=== PATIENT | female | born 1990 | race African-American/Black ===

== ENCOUNTER 2016-09-28 10:51 | Emergency (ER) | payer MEDICAID ==
[~2016-09-28 10:51] MED LIST: BACT2OIN TOP; CLIN150 PO; PRENCAP6 PO
--- NOTE | 2016-09-28 11:25 | PD ---
HPI Chief Complaint Pelvic pain Date Seen: Sep 28, 2016 Time Seen: 11:20 (Yo Styles MD R2) Travel History International Travel<30 Days: No Contact w/Intl Traveler<30Days: No Known Affected Area: No (Yo Styles MD R2) History of Present Illness HPI 25 at 33.4 with due date 11/12. care with Mayelin Ross. Patient states she has had constant pelvic pain since last night. Last night, the pain started 8 out of 10. Worse with sitting, standing, coughing, laughing. Improved with lying flat. She woke up this morning and continues to have pain, though improved from last night. The pain does not come and go. No fever, chills. No loss of fluid, no vaginal bleeding. She feels the baby move normally. No dysuria. No hematuria. Para: 3 : 4 (Yo Styles MD R2) History Past Medical History Medical History: Denies Significant Hx (Yo Styles MD R2) Obstetric History Obstetric History All previous pregnancies were vaginal deliveries. Full-term. No complications. (Yo Styles MD R2) Past Surgical History Surgical History: No Previous Surgery (Yo Styles MD R2) Family History Family History: Negative (Yo Styles MD) Social History Alcohol Use: No Tobacco Use: No Substance Abuse: No (Yo Styles MD R2) Allergies-Medications (Allergen,Severity, Reaction): Coded Allergies: No Known Allergies (Verified , 09/28/16) Home Meds Active Scripts Mupirocin 2% Oint (22 gm) 2 % Oin1 Applic TOP BID 10 Days APPLY TO AFFECTED AREA(S) Prov:Janny Amaya 05/14/16 Reported Medications Mv & Min W/Fe Fumarat ( 1) Cap1 Cap PO DAILY 05/14/16 Discontinued Scripts Clindamycin Hcl (Cleocin)150 Mg Cap2 Tab PO Q8HR 10 Days Prov:Janny Amaya 05/14/16 Review of Systems General / Constitutional: No: Fever Eyes: No: Diploplia, Blurred Vision (Yo Styles MD R2) Physical Exam Narrative GENERAL: Well-nourished, well-developed patient. SKIN: Warm and dry. HEAD: Normocephalic and atraumatic. EYES: No scleral icterus. No injection or drainage. ENT: No nasal drainage noted. Mucous membranes pink. Airway patent. NECK: Supple, trachea midline. No JVD. CARDIOVASCULAR: Regular rate and rhythm without murmurs, gallops, or rubs. RESPIRATORY: Breath sounds equal bilaterally. No accessory muscle use. ABDOMEN/GI: Abdomen soft, non-tender, bowel sounds present, no rebound, no guarding FHT's: Category: 1 Baseline: 145 Reactive: Yes with accelerations Variability: Moderate Decels: None EXTREMITIES: No cyanosis or edema. BACK: Nontender without obvious deformity. No CVA tenderness. NEUROLOGICAL: Awake and alert. Motor and sensory grossly within normal limits. Five out of 5 muscle strength in all muscle groups. Normal speech. (Yo Styles MD R2) Data Data Vital Signs Reviewed: Yes (Yo Styles MD R2) MDM Medical Record Reviewed: Yes Interpretation(s) 25 at 33.4 presents with pelvic pain 1 day. 1. IUP Category 1 tracing No contractions on monitor Continue to monitor 2. Lower pelvic pain No contractions on monitor Musculoskeletal in origin. Narrative Course / MDM No contractions on monitor. Reassurance provided. Musculoskeletal pain. Counseled Tylenol when necessary pain. (Yo Styles MD R2) Diagnosis Diagnosis: Primary Impression: False labor Disposition: 01 DISCHARGE HOME Condition: Stable Collaborating MD Comments Discussed patient in detail with resident. Patient no longer having significant pain now, no contractions noted. Has follow up with nut picker next week. (Florencia Joiner MD) Yo Styles MD R2 Sep 28, 2016 11:25 Florencia Joiner MD Sep 28, 2016 12:32
== END 2016-09-28 12:35 | disposition home or self-care (01) ==
LOC: HOBED 10:57
DX: O47.1 False labor at or after 37 completed weeks of gestation (principal); Z3A.33 33 weeks gestation of pregnancy
CPT/HCPCS: 59025

== ENCOUNTER 2017-10-02 15:16 | Emergency (ER) | payer MEDICAID, OTHER ==
[~2017-10-02] VITALS: Ht 170.2 cm; Wt 93.6 kg
[~2017-10-02 15:16] MED LIST changes: -CLIN150 PO
[2017-10-02 15:19] VITALS: BP 130/72; PULSE 78; RESP 16; TEMP 98.2; O2SAT 99
[2017-10-02 16:37] LABS: AUTOMATED NEUTROPHIL # 8.7 TH/MM3 (1.8-7.7); BASOPHIL # 0.1 TH/MM3 (0-0.2); BASOPHIL % 0.6 % (0.0-2.0); EOSINOPHIL # 0.1 TH/MM3 (0-0.4); EOSINOPHIL % 0.8 % (0.0-4.0); HEMATOCRIT 30.8 % (35.0-46.0); HEMOGLOBIN 10.6 GM/DL (11.6-15.3); LYMPH % 18.8 % (9.0-44.0); LYMPHOCYTE # 2.2 TH/MM3 (1.0-4.8); MEAN CELL VOLUME 86.1 FL (80.0-100.0); MEAN CORPUSCULAR HEMOGLOBIN 29.7 PG (27.0-34.0); MEAN CORPUSCULAR HGB CONC 34.5 % (32.0-36.0); MEAN PLATELET VOLUME 8.1 FL (7.0-11.0); MONO % 6.4 % (0.0-8.0); MONOCYTE # 0.8 TH/MM3 (0-0.9); NEUT % 73.4 % (16.0-70.0); PLATELET COUNT 315 TH/MM3 (150-450); RED BLOOD COUNT 3.58 MIL/MM3 (4.00-5.30); RED CELL DISTRIBUTION WIDTH 13.9 % (11.6-17.2); WHITE BLOOD COUNT 11.8 TH/MM3 (4.0-11.0)
[2017-10-02 16:53] LABS: AMORPHOUS SEDIMENT, URINE RARE; BACTERIA, URINE RARE /hpf; BILIRUBIN, URINE NEG (NEG); BLOOD, URINE NEG (NEG); GLUCOSE,URINE NEG (NEG); KETONE, URINE 80 mg/dL (NEG); MUCUS URINE FEW /lpf (OCC); NITRITE,URINE NEG (NEG); SQUAMOUS EPITHELIAL CELL URINE 6 /hpf (0-5); URINE COLOR YELLOW (YELLW/STRAW); URINE LEUKOCYTE ESTERASE LARGE (NEG)
[2017-10-02 17:09] LABS: ALBUMIN 2.7 GM/DL (3.4-5.0); ALT (GPT) 34 U/L (10-53); AST (GOT) 33 U/L (15-37); BICARBONATE 25.3 MEQ/L (21.0-32.0); BLOOD UREA NITROGEN 6 MG/DL (7-18); CALCIUM 8.1 MG/DL (8.5-10.1); CHLORIDE 103 MEQ/L (98-107); CREATININE 0.47 MG/DL (0.50-1.00); GLOMERULAR FILTRATION RATE 194 ML/MIN (>89); GLUCOSE,RANDOM 79 MG/DL (74-106); SODIUM (NA) 135 MEQ/L (136-145)
[2017-10-02 17:11] LABS: ALKALINE PHOSPHATASE 85 U/L (45-117); TOTAL BILIRUBIN ADULT 0.5 MG/DL (0.2-1.0); TOTAL PROTEIN 7.2 GM/DL (6.4-8.2)
[2017-10-02] MEDS ORDERED: OTC PRENATAL PO (17:27)
[2017-10-02 17:33] VITALS: BP 150/87; PULSE 79; RESP 18; O2SAT 98
--- NOTE | 2017-10-02 17:46 | PD ---
HPI Chief Complaint: Abdominal Pain Time Seen by Provider: 17:25 Travel History International Travel<30 days: No Contact w/Intl Traveler<30days: No Traveled to known affect area: No History of Present Illness HPI 27-year-old female , approximately 26 weeks , LMP in March 2017, [facility] , here for evaluation of right lower quadrant abdominal cramping as well as dental pain. Cramping has been intermittent for the last 2-3 days. She occasionally has sharp pains. This morning she noted some vaginal spotting which has resolved. No other vaginal discharge. She also complains of right lower/posterior dental pain and facial swelling. She feels that she had a fever a couple days ago. She had a few episodes of vomiting yesterday. PFSH Past Medical History Medical History: Denies Significant Hx Diminished Hearing: No Immunizations Current: No Influenza Vaccination: Yes ?: LMP: 28 WEEKS GESTATION : 4 Para: 3 Miscarriage: 0 : 0 Past Surgical History Surgical History: No Previous Surgery Social History Alcohol Use: No Tobacco Use: No Substance Use: No Allergies-Medications (Allergen,Severity, Reaction): Coded Allergies: No Known Allergies (Verified Adverse Reaction, Unknown, 10/02/17) Reported Meds & Prescriptions Reported Meds & Active Scripts Active Reported [Otc ] 1 Tab PO DAILY Review of Systems Except as stated in HPI: all other systems reviewed are Neg Physical Exam Narrative GENERAL: Well-developed, well-nourished, comfortable, no apparent distress. SKIN: Focused skin assessment warm/dry. HEAD: Atraumatic. Normocephalic. EYES: Pupils equal and round. No scleral icterus. No injection or drainage. ENT: No nasal bleeding or discharge. Mucous membranes pink and moist. Very poor dentition. No fluctuance or induration. No drooling or stridor. No trismus. CARDIOVASCULAR: Regular rate and rhythm. RESPIRATORY: No accessory muscle use. Clear to auscultation. Breath sounds equal bilaterally. GASTROINTESTINAL: Abdomen soft, non-tender, nondistended. Gravid uterus palpable above the umbilicus. MUSCULOSKELETAL: No obvious deformities. No clubbing. No cyanosis. No edema. NEUROLOGICAL: Awake and alert. No obvious cranial nerve deficits. Motor grossly within normal limits. Normal speech. PSYCHIATRIC: Appropriate mood and affect; insight and judgment normal. Data Data Last Documented VS Vital Signs Date Time Temp Pulse Resp B/P (MAP) Pulse Ox O2 Delivery O2 Flow Rate FiO2 10/02/17 17:33 79 18 150/87 (108) 98 Room Air 10/02/17 15:19 98.2 Orders Orders Complete Blood Count With Diff (10/02/17 15:58) Urinalysis - C+S If Indicated (10/02/17 15:58) Comprehensive Metabolic Panel (10/02/17 15:58) Gc And Chlamydia Pcr (10/02/17 15:58) Urine Culture (10/02/17 16:20) Cephalexin (Keflex) (10/02/17 18:00) Labs Laboratory Tests Test 10/02/17 16:20 10/02/17 16:22 Urine Color YELLOW Urine Turbidity HAZY Urine pH 7.0 Urine Specific [place] 1.019 Urine Protein TRACE mg/dL Urine Glucose (UA) NEG mg/dL Urine Ketones 80 mg/dL Urine Occult Blood NEG Urine Nitrite NEG Urine Bilirubin NEG Urine Urobilinogen 4.0 MG/DL Urine Leukocyte Esterase LARGE Urine RBC 2 /hpf Urine WBC 9 /hpf Urine Squamous Epithelial Cells 6 /hpf Urine Amorphous Sediment RARE Urine Bacteria RARE /hpf Urine Mucus FEW /lpf Microscopic Urinalysis Comment CULTURE INDICATED White Blood Count 11.8 TH/MM3 Red Blood Count 3.58 MIL/MM3 Hemoglobin 10.6 GM/DL Hematocrit 30.8 % Mean Corpuscular Volume 86.1 FL Mean Corpuscular Hemoglobin 29.7 PG Mean Corpuscular Hemoglobin Concent 34.5 % Red Cell Distribution Width 13.9 % Platelet Count 315 TH/MM3 Mean Platelet Volume 8.1 FL Neutrophils (%) (Auto) 73.4 % Lymphocytes (%) (Auto) 18.8 % Monocytes (%) (Auto) 6.4 % Eosinophils (%) (Auto) 0.8 % Basophils (%) (Auto) 0.6 % Neutrophils # (Auto) 8.7 TH/MM3 Lymphocytes # (Auto) 2.2 TH/MM3 Monocytes # (Auto) 0.8 TH/MM3 Eosinophils # (Auto) 0.1 TH/MM3 Basophils # (Auto) 0.1 TH/MM3 CBC Comment DIFF FINAL Differential Comment Blood Urea Nitrogen 6 MG/DL Creatinine 0.47 MG/DL Random Glucose 79 MG/DL Total Protein 7.2 GM/DL Albumin 2.7 GM/DL Calcium Level 8.1 MG/DL Alkaline Phosphatase 85 U/L Aspartate Amino Transf (AST/SGOT) 33 U/L Alanine Aminotransferase (ALT/SGPT) 34 U/L Total Bilirubin 0.5 MG/DL Sodium Level 135 MEQ/L Potassium Level 3.3 MEQ/L Chloride Level 103 MEQ/L Carbon Dioxide Level 25.3 MEQ/L Anion Gap 7 MEQ/L Estimat Glomerular Filtration Rate 194 ML/MIN MDM Medical Decision Making Medical Screen Exam Complete: Yes Emergency Medical Condition: Yes Differential Diagnosis , placenta previa, Mateo Guy contractions, dental infection Narrative Course Vital signs show heart rate 78, blood pressure 130/72, pulse ox 99% on room air , tympanic temp of 98.2F. CBC: WBC 11.8, hemoglobin 10.6, hematocrit 30.8, platelets 315, neutrophils 73%. CMP is remarkable for potassium 3.3, otherwise unremarkable. UA: 80 ketones, large leukocyte esterase, 9 wbc's, rare bacteria, few mucus Bedside transabdominal ultrasound performed by me shows a large IUP with heart rate of 162 bpm. Patient's abdominal exam is benign. I do not suspect an acute intra-abdominal/ surgical process such as appendicitis. The patient will be started on Keflex for her dental infection and UTI. Case discussed with OB hospitalist Dr. Joiner. The patient will be transferred to the OB ED for further evaluation. Procedures Procedure Narrative Bedside transabdominal ultrasound: Using the curvilinear ultrasound probe, a bedside transabdominal ultrasound was performed by me and shows an IUP with a heart rate of 162 bpm. Diagnosis Primary Impression: Intrauterine Additional Impressions: UTI in Qualified Codes: O23.43 - Unspecified infection of urinary tract in , third trimester Dental caries Scripts Cephalexin (Keflex) 500 Mg Cap 500 MG PO Q8H for Infection, #30 CAP 0 Refills Prov: Sanjay Ibrahim MD 10/02/17 Sanjay Ibrahim MD Oct 02, 2017 17:46
[2017-10-02] MEDS ORDERED: CEPH-460 PO (17:56)
[2017-10-02] MEDS ORDERED: CEPHALEXIN MONOHYDRATE 500 MG CAP PO ONE (18:00)
[2017-10-02] MEDS ORDERED: HYDR-3516 PO (19:06)
--- NOTE | 2017-10-02 19:07 | PD ---
HPI Chief Complaint Toothache and cramping Date Seen: Oct 02, 2017 Time Seen: 19:02 Travel History International Travel<30 Days: No Contact w/Intl Traveler<30Days: No Known Affected Area: No History of Present Illness HPI Patient is 27-year-old with a history of 3 prior vaginal deliveries and one prior who was seen in the main emergency department due to tooth pain and lower abdominal cramping. She had seen a dentist who recommended that she go to the emergency department to obtain antibiotics and did not write her any prescriptions for either pain medication or antibiotic therapy. She obtained an antibiotic prescription in the main emergency department and was sent up here for monitoring. She complains of lower abdominal cramping with pelvic pressure for the past 2 days. Patient denies fever, vaginal bleeding, or vaginal discharge she sees Mayelin Ross for care Weeks Gestation: 29 Para: 4 : 5 History Past Medical History Medical History: Denies Significant Hx Obstetric History Obstetric History Spontaneous vaginal delivery 3 followed by section. All deliveries have been full-term Family History Family History: Negative Social History Alcohol Use: No Tobacco Use: No Substance Abuse: No Allergies-Medications (Allergen,Severity, Reaction): Coded Allergies: No Known Allergies (Verified Adverse Reaction, Unknown, 10/02/17) Home Meds Active Scripts Cephalexin (Keflex) 500 Mg Cap, 500 MG PO Q8H for Infection, #30 CAP 0 Refills Prov:Sanjay Ibrahim MD 10/02/17 Reported Medications [Otc ] No Conflict Check, 1 TAB PO DAILY 10/02/17 Review of Systems Except as stated in HPI: all other systems reviewed are Neg Physical Exam Vital Signs Date Time Temp Pulse Resp B/P (MAP) Pulse Ox O2 Delivery O2 Flow Rate FiO2 10/02/17 17:33 79 18 150/87 (108) 98 Room Air 10/02/17 17:28 18 10/02/17 15:19 98.2 78 16 130/72 (91) 99 Narrative GENERAL: Well-nourished, well-developed patient. CARDIOVASCULAR: Regular rate and rhythm without murmurs, gallops, or rubs. RESPIRATORY: Breath sounds equal bilaterally. No accessory muscle use. ABDOMEN/GI: Abdomen soft, non-tender, bowel sounds present, no rebound, no guarding Gravid to [30-] weeks size Fundal Height: [-] GENITOURINARY: External Genitalia: intact and normal in appearance BUS glands: [-Normal] Cervix: [Posterior-] Dilatation: [Closed-] Effacement: [-Long] Station: [-High] Presentation: [-] Membranes: [intact or ruptured] intact Uterine Contractions: [-] Absent FHT's: Category: [-] 1 Baseline: [-140] Reactive: [Moderate-] Variability: [-Moderate] Decels: [Absent-] EXTREMITIES: No cyanosis or edema. BACK: Nontender without obvious deformity. No CVA tenderness. NEUROLOGICAL: Awake and alert. Motor and sensory grossly within normal limits. Five out of 5 muscle strength in all muscle groups. Normal speech. Data Data Orders Orders Complete Blood Count With Diff (10/02/17 15:58) Urinalysis - C+S If Indicated (10/02/17 15:58) Comprehensive Metabolic Panel (10/02/17 15:58) Gc And Chlamydia Pcr (10/02/17 15:58) Urine Culture (10/02/17 16:20) Cephalexin (Keflex) (10/02/17 18:00) Labs Laboratory Tests Test 10/02/17 16:20 10/02/17 16:22 Urine Color YELLOW Urine Turbidity HAZY Urine pH 7.0 Urine Specific [place] 1.019 Urine Protein TRACE Urine Glucose (UA) NEG Urine Ketones 80 Urine Occult Blood NEG Urine Nitrite NEG Urine Bilirubin NEG Urine Urobilinogen 4.0 Urine Leukocyte Esterase LARGE Urine RBC 2 Urine WBC 9 Urine Squamous Epithelial Cells 6 Urine Amorphous Sediment RARE Urine Bacteria RARE Urine Mucus FEW Microscopic Urinalysis Comment CULTURE INDICATED White Blood Count 11.8 Red Blood Count 3.58 Hemoglobin 10.6 Hematocrit 30.8 Mean Corpuscular Volume 86.1 Mean Corpuscular Hemoglobin 29.7 Mean Corpuscular Hemoglobin Concent 34.5 Red Cell Distribution Width 13.9 Platelet Count 315 Mean Platelet Volume 8.1 Neutrophils (%) (Auto) 73.4 Lymphocytes (%) (Auto) 18.8 Monocytes (%) (Auto) 6.4 Eosinophils (%) (Auto) 0.8 Basophils (%) (Auto) 0.6 Neutrophils # (Auto) 8.7 Lymphocytes # (Auto) 2.2 Monocytes # (Auto) 0.8 Eosinophils # (Auto) 0.1 Basophils # (Auto) 0.1 CBC Comment DIFF FINAL Differential Comment Blood Urea Nitrogen 6 Creatinine 0.47 Random Glucose 79 Total Protein 7.2 Albumin 2.7 Calcium Level 8.1 Alkaline Phosphatase 85 Aspartate Amino Transf (AST/SGOT) 33 Alanine Aminotransferase (ALT/SGPT) 34 Total Bilirubin 0.5 Sodium Level 135 Potassium Level 3.3 Chloride Level 103 Carbon Dioxide Level 25.3 Anion Gap 7 Estimat Glomerular Filtration Rate 194 Date/Time Source Procedure Growth Status 10/02/17 16:20 Urine Random Urine Urine Culture Pending Worksheet [facility] Medical Record Reviewed: Yes Plan 27-year-old at 29 weeks and 1 day with no signs of premature labor or contraction activity. Patient has been given antibiotics for her infected tooth and I recommended she follow-up with a dentist after antibiotic therapy is completed Patient states that she is in moderate to severe amount of pain and is unable to eat due to the discomfort-a short course of Lortab was given to the patient Diagnosis Diagnosis: Primary Impression: Intrauterine Additional Impressions: UTI in Qualified Codes: O23.43 - Unspecified infection of urinary tract in , third trimester Dental caries Disposition: DISCHARGE HOME Scripts Hydrocodone-Acetaminophen (Hydrocodone-Acetaminophen) 5-325 mg Tab 1 TAB PO Q6H Y for PAIN, #20 TAB 0 Refills Prov: Florencia Joiner MD 10/02/17 Cephalexin (Keflex) 500 Mg Cap 500 MG PO Q8H for Infection, #30 CAP 0 Refills Prov: Sanjay Ibrahim MD 10/02/17 Florencia Joiner MD Oct 02, 2017 19:07
== END 2017-10-02 19:30 | disposition home or self-care (01) ==
LOC: NEPD 15:16 → HOBED 19:30
DX: O23.43 Unspecified infection of urinary tract in pregnancy, third trimester (principal); O99.613 Diseases of the digestive system complicating pregnancy, third trimester; K02.9 Dental caries, unspecified; Z3A.29 29 weeks gestation of pregnancy
CPT/HCPCS: 80053; 81001; 85025; 87086; 87491; 87591; 99283

== ENCOUNTER 2017-12-12 08:04 | Inpatient (IN) | payer OTHER ==
[2017-12-12] VITALS (7 sets, daily range): BP systolic 125–137; BP diastolic 68–86; PULSE 51–74; RESP 16–18; TEMP 97.7–97.9; O2SAT 99
[~2017-12-12 08:04] MED LIST changes: -BACT2OIN TOP; +CEPH-460 PO; +HYDR-3516 PO; +OTC PRENATAL PO; -PRENCAP6 PO
[2017-12-12] MEDS ORDERED: LACTATED RINGER'S 1000 ML INJ 1,000 ML IV ONE ×2 (08:19→12:00)
--- NOTE | 2017-12-12 08:19 | HHI.HP ---
History & Physical H&P Patient Name: Carol Irene Unit Number: [id number] Date of : 1990 Patient Status: Registered Clinic Attending Doctor: Bryan Ward II, MD HPI HPI Chief Complaint Previous for repeat tubal Date Seen: December 12, 2017 Time Seen: 1000 Travel History International Travel<30 Days: No Contact w/Intl Traveler<30Days: No Known Affected Area: No History of Present Illness HPI Patient is 27-year-old black female previous section 1 now 39 weeks followed by [facility] and presents for repeat tubal ligation . Patient had 3 vaginal deliveries and a for failure to progress and distress 1 year ago. The patient was counseled on versus repeat section and she has had 3 vaginal deliveries she wants to do a C- section and" get this over with" also patient wants her tubes tied and has tubal papers Weeks Gestation: 38 Para: 4 : 5 History (Limited) History Obstetric History Obstetric History 3 vaginal deliveries and then a for failure to progress distress Past Surgical History Narrative Surgical Social History Alcohol Use: No Tobacco Use: No Substance Abuse: No Allergies-Medications Allergies-Medications (Allergen,Severity, Reaction): Coded Allergies: No Known Allergies (Verified Adverse Reaction, Unknown, 10/02/17) Home Meds Active Scripts Hydrocodone-Acetaminophen (Hydrocodone-Acetaminophen) 5-325 mg Tab, 1 TAB PO Q6H Y for PAIN, #20 TAB 0 Refills Prov:Florencia Joiner MD 10/02/17 Cephalexin (Keflex) 500 Mg Cap, 500 MG PO Q8H for Infection, #30 CAP 0 Refills Prov:Sanjay Ibrahim MD 10/02/17 Reported Medications [Otc ] No Conflict Check, 1 TAB PO DAILY 10/02/17 ROS Review of Systems General / Constitutional: No: Fever, Weight Gain, Chills, Other Eyes: No: Diploplia, Blurred Vision, Visual changes, Pain, Photophobia HENT: No: Headaches, Vertigo, Lightheadedness Cardiovascular: No: Irregular Rhythm, Chest Pain or Discomfort, Palpitations, Tachycardia, Syncope, Varicosities, Edema, Cyanosis Respiratory: No: Cough, Short of Breath, Other Gastrointestinal: No: Nausea, Vomiting, Diarrhea Genitourinary: No: Decreased Urinary Output, Oliguria Musculoskeletal: No: Limited ROM, Weakness, Cramping, Edema, Pain Skin: No Rash, No Itching, No Dryness, No Lumps, No Change in Pigmentation, No Change in Nails, No Alopecia, No Lesions Neurologic: No: Weakness, Dizziness, Syncope, Focal Abnormalities, Coordination Problem, Headache, Slurred Speech, Seizures Psychiatric: No: Depression, Suicidal Ideations, Homicidal Ideation Endocrine: No: Heat Intolerance, Cold Intolerance, Polydipsia, Polyuria, Other Physical Exam Physical Exam Narrative GENERAL: Well-nourished, well-developed patient. SKIN: Warm and dry. HEAD: Normocephalic and atraumatic. EYES: No scleral icterus. No injection or drainage. ENT: No nasal drainage noted. Mucous membranes pink. Airway patent. NECK: Supple, trachea midline. No JVD. CARDIOVASCULAR: Regular rate and rhythm without murmurs, gallops, or rubs. RESPIRATORY: Breath sounds equal bilaterally. No accessory muscle use. BREASTS: Bilateral exam showed no masses , no retractions, no nipple discharge. ABDOMEN/GI: Abdomen soft, non-tender, bowel sounds present, no rebound, no guarding Gravid to [38-] weeks size Fundal Height: [-38] GENITOURINARY: External Genitalia: intact and normal in appearance BUS glands: [-] Cervix: [-post] Dilatation: [0-] Effacement: [-0] Station: [-3] Presentation: [vtx-] Membranes: [intact ] Uterine Contractions: [none-] FHT's: Category: [1-] Baseline: [-133] Reactive: [-R] Variability: [-mod] Decels: [-none] EXTREMITIES: No cyanosis or edema. BACK: Nontender without obvious deformity. No CVA tenderness. NEUROLOGICAL: Awake and alert. Motor and sensory grossly within normal limits. Five out of 5 muscle strength in all muscle groups. Normal speech. Data Data Data Group B Strep: Positive MDM MDM Interpretation(s) Patient is 27-year-old black female at 39 weeks previous with her last baby now for repeat tubal ligation. Patient understands the risk and benefits of & which she was counseled on and refused. She also wants her tubes tied and understand the procedure is less than 100% successful with a 1 in 300 failure rate yet is considered permanent Plan Plan repeat tubal ligation on December 12 when she will be 39-1/2 weeks Diagnosis: Previous desires BTL Disposition ADMIT to L&D Condition: Stable Bryan Ward II, MD, Bill L. II MD December 12, 2017 08:19
[2017-12-12 09:25] LABS: AUTOMATED NEUTROPHIL # 6.4 TH/MM3 (1.8-7.7); BASOPHIL % 0.4 % (0.0-2.0); EOSINOPHIL # 0.1 TH/MM3 (0-0.4); EOSINOPHIL % 0.9 % (0.0-4.0); HEMOGLOBIN 9.2 GM/DL (11.6-15.3); LYMPH % 26.4 % (9.0-44.0); LYMPHOCYTE # 2.6 TH/MM3 (1.0-4.8); MEAN CELL VOLUME 79.7 FL (80.0-100.0); MEAN CORPUSCULAR HEMOGLOBIN 27.1 PG (27.0-34.0); MEAN PLATELET VOLUME 8.1 FL (7.0-11.0); MONO % 6.5 % (0.0-8.0); MONOCYTE # 0.6 TH/MM3 (0-0.9); NEUT % 65.8 % (16.0-70.0); PLATELET COUNT 271 TH/MM3 (150-450); RED BLOOD COUNT 3.39 MIL/MM3 (4.00-5.30); WHITE BLOOD COUNT 9.8 TH/MM3 (4.0-11.0)
[2017-12-12 09:30] LABS: BACTERIA, URINE MOD /hpf; BILIRUBIN, URINE NEG (NEG); BLOOD, URINE NEG (NEG); GLUCOSE,URINE NEG (NEG); KETONE, URINE NEG (NEG); MUCUS URINE FEW /lpf (OCC); NITRITE,URINE NEG (NEG); PH, URINE 7.5 (5.0-8.5); SQUAMOUS EPITHELIAL CELL URINE 9 /hpf (0-5); URINE COLOR YELLOW (YELLW/STRAW); URINE LEUKOCYTE ESTERASE LARGE (NEG)
[2017-12-12] MEDS ORDERED: ceFAZolin 2 GM PREMIX 50 ML IV SCH (09:30)
[2017-12-12] MEDS ORDERED: CITRIC ACID-SODIUM CITRATE LIQ 30 ML UDC PO SCH (10:00)
[2017-12-12] MEDS ORDERED: MORPHINE SULFATE PF 5 MG/10 ML VIAL ONE (11:13)
[2017-12-12] MEDS: LACTATED RINGER'S 1000 ML INJ 1,000 ML IV SCH ×3 (11:29→18:11)
[2017-12-12] MEDS ORDERED: ePHEDrine/NS 25 MG/5 ML SYRINGE IV ONE (12:00)
[2017-12-12] MEDS ORDERED: ONDANSETRON HCL 4 MG/2 ML VIAL IV ONE (12:00)
[2017-12-12] MEDS ORDERED: DEXAMETHASONE SOD PHOS 4 MG/ML VIAL IV ONE (12:00)
[2017-12-12] MEDS ORDERED: OXYTOCIN 10 UNIT/ML AMP IV ONE (12:00)
[2017-12-12] MEDS ORDERED: ACETAMINOPHEN 1000 MG/100 ML 100 ML IV ONE (12:57)
[2017-12-12] MEDS ORDERED: SIMETHICONE 80 MG CHEWABLE TAB PO PRN (13:15)
[2017-12-12] MEDS ORDERED: oxyCODONE/ACETAMINOPHEN 5 MG/325 MG TAB PO PRN (13:15)
[2017-12-12] MEDS ORDERED: ACETAMINOPHEN 325 MG TAB PO PRN (13:15)
[2017-12-12] MEDS ORDERED: ONDANSETRON HCL 4 MG/2 ML VIAL IV PUSH PRN (13:15)
[2017-12-12] MEDS ORDERED: OXYTOCIN 30 UNITS-500ML PREMIX 500 ML IV ONE (13:15)
[2017-12-12] MEDS ORDERED: KETOROLAC TROMETHAMINE 60 MG/2 ML (IM) VIAL IM PRN (13:15)
--- NOTE | 2017-12-12 13:27 | PD.OP ---
Operative Report Date of Surgery: December 12, 2017 Preoperative Diagnosis: 1. IUP @ 39.2wks 2. h/o CS x1 3. grandmultiparity 4. desires permanent sterilization Postoperative Diagnosis: same Procedure: 1. rCS 2. BTL 3. ROV cystectomy 4. scar revision Anesthesia: spinal Surgeon: Milady Gayle Senior Engineer(s): Vic Owens MD Operation and Findings: Antibiotics: 2g ancef DVT prophylaxis: SCDs were in place and active throughout the entire procedure EBL: 800cc IVF: 2500cc UOP: 150cc Drain(s): Mercedes to straight drain Specimen(s): b/l fallopian tube segments; ROV cyst Findings: dense fascial and rectus scarring, normal TERESA/tube, R ovary with solid /hemorrhagic cyst; vtx male delivered from LOP wt 3645g, APGARs 9/9 Complications: none Disposition: to PACU in stable condition Technique: The R/B/A were discussed with the pt, all questions answered, and consents signed. The pt was taken to the operating room where spinal anesthesia was found to be adequate. She was then prepped and draped in the normal sterile fashion in the dorsal supine position with leftward tilt. A Pfannenstiel skin incision was then made with the scalpel above and below the keloid scar and excised with the Bovie. The scalpel was used to then incise through to the underlying layer of fascia. The fascia was incised in the midline and the incision extended laterally with Batres scissors. The superior aspect of the fascial incision was grasped with Manisha clamps, elevated, and the underlying rectus muscles dissected off bluntly and with Batres scissors. Attention was then turned to the inferior aspect of this incision which, in a similar fashion, was grasped, tented up with Manisha clamps, and the rectus muscles dissected off bluntly and with Batres scissors. The rectus muscles were then cut with Batres scissors given dense scarring, taking great caution to avoid the bladder. The peritoneum was identified and entered bluntly. The peritoneal incision was stretched with good visualization of the bladder. The bladder blade was inserted and attempts to make a bladder flap were unsuccessful due to dense scarring. The upper portion of the lower uterine segment was incised in a transverse fashion with the scalpel. The uterine incision was stretched superiorly and inferiorly. The bladder blade was removed and the infant's head delivered atraumatically followed by the body. Delayed cord clamping ensued for 45sec while the was dried, suctioned, and stimulated. The cord was double clamped and cut and infant handed off to the waiting team. The placenta expelled with manual fundal massage. The uterus was exteriorized and cleared of all clots and debris. The uterine incision was repaired with 0- vicryl in a running, locked fashion. A second layer using 0-monocryl suture was used to obtain excellent hemostasis via embrication. Next the R fallopian tube was grasped with the Bronson clamp, elevated, and a window was made in the mesosalpinx. The tube was double tied and using Metzenbaum scissors a segment excised and sent to pathology. The edges of both sides were touched with the Bovie. Hemostasis was confirmed. These steps were repeated on the L side. Both tubal segments were sent to pathology. Next, a 4cm hemorrhagic/solid ROV cyst was addressed. Dr. Owens was asked to assist in the OR. The cyst was incised with the Bovie, contents collected for pathology, and the cell wall excised with Metzenbaum scissors. The ovarian bed was overswen with 3-0 monocryl in a running locked fashion. Margi and intercede were placed. Hemostasis was confirmed. The posterior cul-de-sac was suctioned and the uterus was returned to the abdomen. The gutters were cleared of all clots and debris. The muscles were reapproximated with 2-0 vicryl in a [id number]. The underneath fascia was inspected and found to be hemostatic. The fascia was closed with 0-vicryl in a running fashion. The subcutaneous tissue was irrigated with saline and made hemostatic with the Bovie. The subcutaneous layer was reapproximated with plain gut with simple interrupted stitches. The skin was closed with 4-0 monocryl. Steristrips were placed and the incision dressed appropriately. The patient tolerated the procedure well. She was taken to the recovery room in stable condition. Sponge, lap, instrument, and needle counts were correct x3. Milady Gayle MD December 12, 2017 13:27
[2017-12-12] MEDS ORDERED: EPIDURAL-DIPHENHYDRAMINE HCL 50 MG/ML VIAL IV PUSH PRN (14:30)
[2017-12-12] MEDS ORDERED: EPIDURAL-NO SYSTEMIC NARCOTICS PRN (14:30)
[2017-12-12] MEDS ORDERED: EPIDURAL-DIPHENHYDRAMINE HCL 50 MG CAP PO PRN (14:30)
[2017-12-12] MEDS ORDERED: EPIDURAL-NALOXONE HCL 0.4 MG/ML AMP IV PUSH PRN (14:30)
[2017-12-12] MEDS ORDERED: EPIDURAL-DO NOT ADMINISTER ANTICOAGULANTS PRN (14:30)
[2017-12-12] MEDS ORDERED: PROMETHAZINE HCL 25 MG TAB PO PRN (16:15)
[2017-12-12] MEDS ORDERED: PROMETHAZINE INJ 25 MG/ML VIAL IM PRN (16:30)
[2017-12-12] MEDS ORDERED: OXYTOCIN 30 UNITS-500ML PREMIX 500 ML IV PRN (18:15)
[2017-12-13 00:09] VITALS: BP 127/79; PULSE 60; RESP 18; TEMP 98.1
[2017-12-13 03:55] VITALS: BP 115/68; PULSE 62; RESP 18; TEMP 98
[2017-12-13] MEDS: LACTATED RINGER'S 1000 ML INJ 1,000 ML IV SCH ×3 (04:11→20:21)
[2017-12-13] MEDS: oxyCODONE/ACETAMINOPHEN 5 MG/325 MG TAB PO PRN ×4 (04:57→20:16)
[2017-12-13 06:02] LABS: AUTOMATED NEUTROPHIL # 12.2 TH/MM3 (1.8-7.7); BASOPHIL % 0.1 % (0.0-2.0); EOSINOPHIL % 0.2 % (0.0-4.0); HEMATOCRIT 25.9 % (35.0-46.0); HEMOGLOBIN 8.8 GM/DL (11.6-15.3); LYMPH % 17.2 % (9.0-44.0); LYMPHOCYTE # 2.7 TH/MM3 (1.0-4.8); MEAN CELL VOLUME 80.1 FL (80.0-100.0); MEAN CORPUSCULAR HEMOGLOBIN 27.2 PG (27.0-34.0); MEAN PLATELET VOLUME 8.7 FL (7.0-11.0); MONO % 6.2 % (0.0-8.0); NEUT % 76.3 % (16.0-70.0); PLATELET COUNT 267 TH/MM3 (150-450); RED BLOOD COUNT 3.24 MIL/MM3 (4.00-5.30); RED CELL DISTRIBUTION WIDTH 14.7 % (11.6-17.2); WHITE BLOOD COUNT 15.9 TH/MM3 (4.0-11.0)
--- NOTE | 2017-12-13 08:49 | HHI.OB ---
Subjective Post Operative Day: 1 Remarks Patient seen and examined this morning. AFVSS overnight. Postoperative day #1. Patient states her pain has been controlled with her current medication regimen. She denies any soaking or drainage from her incision into her bandage. Decreased lochia. Denies dysuria. No breast tenderness. She is feeding the baby via formula. Appetite good. No nausea or vomiting. Endorsing flatus. Ambulating well. Denies fevers, calf pain, shortness of breath, or cough. She otherwise has no other complaints or concerns this morning. Objective Vitals/I&O Vital Signs Date Time Temp Pulse Resp B/P (MAP) Pulse Ox O2 Delivery O2 Flow Rate FiO2 12/13/17 03:55 98.0 62 18 115/68 (84) 12/13/17 00:09 98.1 60 18 127/79 (95) 12/12/17 20:27 97.7 54 18 125/79 (94) 12/12/17 14:00 99 12/12/17 14:00 51 16 131/77 (95) 12/12/17 13:45 62 18 137/86 (103) 99 12/12/17 13:15 97.8 12/12/17 13:15 97.8 12/12/17 13:15 56 17 130/68 (88) 99 Result Diagram: 12/13/17 0512 Objective Remarks GENERAL: Well-nourished, well-developed patient. CARDIOVASCULAR: Regular rate and rhythm without murmurs, gallops, or rubs. RESPIRATORY: Breath sounds equal bilaterally. No accessory muscle use. ABDOMEN/GI: Abdomen soft, non-tender, bowel sounds present. Incision: Covered by bandage, appearing dry Fundus: Firm, non-tender at umbilicus. GENITOURINARY: Light to moderate bleeding. EXTREMITIES: No cyanosis or edema, non-tender, without signs of DVT. Medications and IVs Current Medications Medications (Trade) Dose Ordered Sig/Julito Route Start Time Stop Time Status Last Admin Lactated Ringer's 1,000 ml @ 150 mls/hr Q6H40M IV 12/12/17 08:49 12/12/17 11:29 Cefazolin Sodium/ Dextrose 50 ml @ 100 mls/hr MS [employer] IV 12/12/17 09:30 12/16/17 09:29 12/12/17 11:29 (Bicitra Liq) 30 ml MS [employer]ELOPER PO 12/12/17 10:00 12/16/17 09:59 12/12/17 11:28 Lactated Ringer's 1,000 ml @ 100 mls/hr Q10H IV 12/12/17 18:11 12/13/17 14:10 Oxytocin 500 ml @ 100 mls/hr UNSCH X1 PRN IV 12/12/17 18:15 12/13/17 18:14 (Mylicon Chew) 80 mg QID PRN PO 12/12/17 13:15 (Tylenol) 650 mg Q6H PRN PO 12/12/17 13:15 (Toradol Inj) 30 mg Q6H PRN IM 12/12/17 13:15 12/13/17 13:14 (Percocet 5-325 Mg) 1 tab Q4H PRN PO 12/12/17 13:15 (Percocet 5-325 Mg) 2 tab Q4H PRN PO 12/12/17 13:15 12/13/17 04:57 (Shannon-Colace) 2 tab Q12H PRN PO 12/12/17 13:15 (M-M-R Ii Inj) 0.5 ml ONCE ONCE SQ 12/13/17 16:00 12/13/17 16:01 (Boostrix Inj) 0.5 ml ONCE ONCE IM 12/13/17 16:00 12/13/17 16:01 (Zofran Inj) 4 mg Q6H PRN IV PUSH 12/12/17 13:15 ([facility] [place] [facility]) NO SYSTEMIC NARCOTICS TO BE GIVEN FO... UNSCH PRN .XX 12/12/17 14:30 12/13/17 14:29 (Narcan Inj) 0.4 mg UNSCH PRN IV PUSH 12/12/17 14:30 12/13/17 14:29 (Benadryl Inj) 25 mg Q6H PRN IV PUSH 12/12/17 14:30 12/13/17 14:29 (Benadryl) 50 mg Q6H PRN PO 12/12/17 14:30 12/13/17 14:29 ([facility] [place] [facility] Information) ALL NURSING DEPARTMENTS UNSCH PRN .XX 12/12/17 14:30 12/13/17 14:29 (Phenergan Inj) 25 mg Q6H PRN IM 12/12/17 16:30 12/12/17 16:33 Assessment/Plan Problem List: (1) care following delivery ICD Codes: Z39.2 - Encounter for routine follow-up Assessment and Plan 27 year-old now POD#1 s/p repeat . 1. Postoperative Care - AFVSS - Postop H&H 8.8, from 9.2 - Incision covered by bandage, appearing dry - Percocet and Motrin prn pain - Encouraged OOB, as tolerated - Advised pelvic rest x 6 weeks - Formula feeding - Contraception: s/p BTL - Instructed follow up in 1 week with OB provider for incision check after hospital discharge - Anticipate discharge in 1-2 days pending stable clinical course wdw OB Hospitalist Kyrie Gutierrez MD R2 December 13, 2017 08:49
[2017-12-13] MEDS ORDERED: PERI PO (09:32)
[2017-12-13] MEDS: DOCUSATE SODIUM 50 MG/SENNA 8.6 MG TAB PO PRN (11:08)
[2017-12-13 12:00] VITALS: BP 123/85; PULSE 70; RESP 20; RESP 9; TEMP 98.1; O2SAT 97
[2017-12-13] MEDS ORDERED: DIPHTH/TETANUS/ACEL PERTUSSIS (BOOSTER) 0.5 ML VIAL/PFS IM ONE (16:00)
[2017-12-13] MEDS ORDERED: MEASLES, MUMPS, RUBELLA VACCINE 0.5 ML VIAL SQ ONE (16:00)
[2017-12-13] MEDS: IBUPROFEN 800 MG TAB PO PRN (16:01)
[2017-12-13 20:00] VITALS: BP 127/81; PULSE 81; RESP 18; TEMP 98; O2SAT 99
[2017-12-14] MEDS: DOCUSATE SODIUM 50 MG/SENNA 8.6 MG TAB PO PRN
[2017-12-14] MEDS: oxyCODONE/ACETAMINOPHEN 5 MG/325 MG TAB PO PRN ×2 (05:49)
[2017-12-14] MEDS ORDERED: OXYC1TAB63 PO (07:37)
--- NOTE | 2017-12-14 07:37 | HHI.DCPOC ---
Discharge Care Plan Diagnosis: (1) care following delivery Report Symptoms to Your Doctor -Temperature above 100.5 degrees -Redness, of incision or excessive or foul smelling drainage -Unusual pain or calf pain -Increased vaginal bleeding -Painful or difficulty urinating -Feelings of extreme sadness or anxiety after 2 weeks Goals to Promote Your Health * To maintain your health at the optimal level, follow up with your primary OB provider within one week after hospital discharge for an incision check. Directions to Meet Your Goals Take your medications as prescribed Follow your dietary instruction Follow activity as directed Ensure plenty of rest for recovery Drink fluids for hydration Keep your appointments as scheduled Take your immunizations and boosters as scheduled If your symptoms worsen call your PCP, if no PCP go to Urgent Care Center or Emergency Room Smoking is Dangerous to Your Health. Avoid second hand smoke Call the 24-hour crisis hotline for domestic abuse at Kyrie Gutierrez MD R2 December 14, 2017 07:37
--- NOTE | 2017-12-14 07:45 | HHI.OB ---
Subjective Post Operative Day: 2 Remarks Patient seen and examined this morning. AFVSS overnight. Postoperative day #2. Patient states her pain has been well controlled. Denies any bleeding or drainage from her incision site. Decreased lochia. Denies dysuria. No breast tenderness. She is feeding the baby via formula. Appetite good. No nausea or vomiting. Endorses flatus. Ambulating well without issues. Denies fevers or chills, calf pain, shortness of breath, or cough. She otherwise has no other complaints or concerns this morning. Objective Vitals/I&O Vital Signs Date Time Temp Pulse Resp B/P (MAP) Pulse Ox O2 Delivery O2 Flow Rate FiO2 12/13/17 20:00 98.0 81 18 127/81 (96) 99 12/13/17 12:00 123/85 (98) 12/13/17 12:00 20 97 12/13/17 12:00 70 9 12/13/17 12:00 98.1 Result Diagram: 12/13/17 0512 Objective Remarks GENERAL: Well-nourished, well-developed patient. CARDIOVASCULAR: Regular rate and rhythm without murmurs, gallops, or rubs. RESPIRATORY: Breath sounds equal bilaterally. No accessory muscle use. ABDOMEN/GI: Abdomen soft, non-tender, bowel sounds present. Incision: c/d/i, steri strips intact Fundus: Firm, non-tender at umbilicus. GENITOURINARY: Light to moderate bleeding. EXTREMITIES: No cyanosis or edema, non-tender, without signs of DVT. Medications and IVs Current Medications Medications (Trade) Dose Ordered Sig/[facility] Route Start Time Stop Time Status Last Admin Lactated Ringer's 1,000 ml @ 150 mls/hr Q6H40M IV 12/12/17 08:49 12/12/17 11:29 Cefazolin Sodium/ Dextrose 50 ml @ 100 mls/hr [employer] IV 12/12/17 09:30 12/16/17 09:29 12/12/17 11:29 (Bicitra Liq) 30 ml [employer] PO 12/12/17 10:00 12/16/17 09:59 12/12/17 11:28 (Mylicon Chew) 80 mg QID PRN PO 12/12/17 13:15 (Tylenol) 650 mg Q6H PRN PO 12/12/17 13:15 (Percocet 5-325 Mg) 1 tab Q4H PRN PO 12/12/17 13:15 (Percocet 5-325 Mg) 2 tab Q4H PRN PO 12/12/17 13:15 12/14/17 05:49 (Shannon-Colace) 2 tab Q12H PRN PO 12/12/17 13:15 12/14/17 00:00 (Zofran Inj) 4 mg Q6H PRN IV PUSH 12/12/17 13:15 (Phenergan Inj) 25 mg Q6H PRN IM 12/12/17 16:30 12/12/17 16:33 (Motrin) 800 mg Q8H PRN PO 12/13/17 16:00 12/14/17 00:00 Assessment/Plan Problem List: (1) care following delivery ICD Codes: Z39.2 - Encounter for routine follow-up Assessment and Plan 27 year-old now POD#2 s/p repeat . 1. Postoperative Care - AFVSS - Postop H&H 8.8, from 9.2 - Incision c/d/i - Percocet and Motrin prn pain - Encouraged OOB, as tolerated - Advised pelvic rest x 6 weeks - Formula feeding - Contraception: s/p BTL - Instructed follow up in 1 week with OB provider for incision check after hospital discharge - Stable for discharge home today dw Kyrie Colby MD R2 December 14, 2017 07:45
[2017-12-14] MEDS: IBUPROFEN 800 MG TAB PO PRN ×2 (08:44)
== END 2017-12-14 11:33 | disposition home or self-care (01) | DRG 766 ==
LOC: H2EB 08:04 → H1EA 14:15
PROVIDERS: ADMIT Obstetrics & Gynecology; ATTEND Obstetrics & Gynecology
PROC: 10D00Z1 Extraction of Products of Conception, Low, Open Approach (ICD-10-PCS; principal; 2017-12-12)
PROC: 0JN80ZZ Release Abdomen Subcutaneous Tissue and Fascia, Open Approach (ICD-10-PCS; 2017-12-12)
PROC: 0UB70ZZ Excision of Bilateral Fallopian Tubes, Open Approach (ICD-10-PCS; 2017-12-12)
PROC: 0UB00ZZ Excision of Right Ovary, Open Approach (ICD-10-PCS; 2017-12-12)
DX: O34.219 Maternal care for unspecified type scar from previous cesarean delivery (principal); N85.8 Other specified noninflammatory disorders of uterus; O34.83 Maternal care for other abnormalities of pelvic organs, third trimester; N83.201 Unspecified ovarian cyst, right side; Z37.0 Single live birth; Z3A.39 39 weeks gestation of pregnancy
CPT/HCPCS: 59025; 80307; 81001; 85025; 86850; 86900; 86901; 87086; 88302; 88304; 88305; 90715; C1765; J0131; J0690; J1100; J2274; J2405; J2550; J2590; J3010; J7120